=== PATIENT | female | born 1995 | race Caucasian/White ===

== ENCOUNTER 2020-12-27 07:03 | Emergency (ER) | payer MEDICAID ==
[2020-12-27] MEDS ORDERED: SODIUM CHLORIDE 0.9% 1,000 ML IV STA (07:26)
[2020-12-27] MEDS ORDERED: ONDANSETRON 4 MG/2 ML VIAL IVP STA (07:26)
[2020-12-27] MEDS ORDERED: diazePAM INJ 5 MG/ML SYRINGE IVP STA (07:28)
--- NOTE | 2020-12-27 07:32 | ED Physician Documentation ---
History of Present Illness - Stated complaint Stated Complaint: WITHDRAWL - Chief complaint Chief Complaint: General - History obtained from History obtained from: Patient - Additonal information Additional information: Patient comes emergency department for chief complaint of opiate withdrawal. She states she just entered a detox facility yesterday, and was started on Suboxone. She told the night nurse that it had been 24 hours since her last dose of Suboxone so she can get her dose early; however, she states that now she is feeling like she is withdrawing. She has been vomiting overnight and states her legs keep shaking. Patient states she does not know when her next Suboxone dose is supposed to be, though she states they get it once a day. No fevers or chills. No abdominal pain. She states she is very tired and has not been able to sleep all night. No other complaints at this time. No hallucinations. No suicidal ideation. She states her detox facility sent her here to "get fluids". Review of Systems Ten Systems: 10 systems reviewed and negative Constitutional: reports: Reviewed and negative Eyes: reports: Reviewed and negative Ears: reports: Reviewed and negative Nose: reports: Reviewed and negative Throat: reports: Reviewed and negative Cardiac: reports: Reviewed and negative Respiratory: reports: Reviewed and negative GI: reports: Nausea, Vomiting : reports: Reviewed and negative Skin: reports: Reviewed and negative Musculoskeletal: reports: Reviewed and negative Neurologic: reports: Reviewed and negative Psychiatric: reports: Reviewed and negative Endocrine: reports: Reviewed and negative Immunocompromised: reports: Reviewed and negative PD PAST MEDICAL HISTORY - Present Medications Home Medications: Ambulatory Orders Medication Instructions Recorded Confirmed No Known Home Medications 12/27/20 12/27/20 - Allergies Allergies/Adverse Reactions: Allergies Allergy/AdvReac Type Severity Reaction Status Date / Time No Known Drug Allergies Allergy Verified 12/27/20 07:52 PD ED PE NORMAL - Vitals Vital signs reviewed: Yes - General General: Alert and oriented X 3, Well developed/nourished, Other (Patient appears anxious but otherwise no apparent distress.) - HEENT HEENT: Atraumatic, PERRL, EOMI, Moist mucous membranes - Neck Neck: Supple, no meningeal sign - Cardiac Cardiac: RRR, No murmur - Respiratory Respiratory: No respiratory distress, Clear bilaterally - Abdomen Abdomen: Soft, Non tender, Non distended - Derm Derm: Normal color, Warm and dry, No rash, Other (No piloerection) - Extremities Extremities: No deformity, No edema, No calf tenderness / cord - Neuro Neuro: Alert and oriented X 3, sand mixer machine 2-12 intact, No motor deficit, No sensory deficit, Normal speech, Other (Patient is consistently and constantly shaking her legs during our conversation, but otherwise neurologically intact.) - Psych Psych: Normal affect, Other (Patient appears anxious.) Results - Vitals Vitals: Oxygen O2 Source Room air PD MEDICAL DECISION MAKING - ED course Complexity details: considered differential, d/w patient ED course: The patient was symptomatically treated with IV fluids, Zofran, clonidine patch, and a dose of Valium. The pt began to escalate, stating that the meds we had given her weren't working, and that "they never do". I did inform her that I would not be giving her IV narcotics. Her vital signs are normal, and she does not display any evidence of dangerous/unstable withdrawal. I have discussed with her that the detox facility's role is to manage her withdrawal and weaning from opiates with Suboxone. If the pt wants to be clean, she will need to follow the regimen they lay out for her, and resolve to push through the discomfort. Pt received about 400 cc of NS before stating she wanted her IV out so she could just go back to detox. We have discussed the usual indications for return. Departure - Departure Disposition: 01 Home, Self Care Clinical Impression: Opiate withdrawal Condition: Stable Instructions: ED Withdrawal Narcotic Comments: You have been given IV fluids, antinausea medicine, and medicine for both the withdrawal and the anxiety in the emergency department. You have requested to stop your IV fluids early and leave. Unfortunately, the symptoms of withdrawal are unpleasant and can last for some time. There is most likely some anxiety accompanying this that is making your symptoms worse. However, you are not in dangerous withdrawals, in that your vital signs are completely normal. As such, we will not administer narcotics of any kind in the emergency department, and do not for withdrawals unless you are exhibiting signs of life-threatening withdrawal. You are currently in enrolled in a detox program and they are monitoring your detox plan. You should go back to your detox facility and get back on the scheduled Suboxone to help you wean off of the dependence upon opiates. Discharge Date/Time: 12/27/20 08:45
[2020-12-27] MEDS ORDERED: cloNIDine 0.1 MG TABLET PO STA (08:10)
[2020-12-27 08:22] VITALS: BP 107/47
== END 2020-12-27 08:45 | disposition home or self-care (01) ==
LOC: ED 07:03
DX: F11.23 Opioid dependence with withdrawal (principal)
CPT/HCPCS: 36415; 96374; 96375; 99283; 99284; A9270